=== PATIENT | female | born 1975 | race Two or more races ===

== ENCOUNTER → 2019-08-19 | Outpatient (CLI) | payer SELFPAY | END | disposition home or self-care (01) | LOC: LAB SHORT 14:30 → LAB 14:30 | DX: N75.0 Cyst of Bartholin's gland (principal) | CPT/HCPCS: 87070; 87075; 87205 ==

== ENCOUNTER → 2021-05-28 | Outpatient (CLI) | payer SELFPAY | END | disposition home or self-care (01) | LOC: LAB SHORT 13:22 | DX: N92.0 Excessive and frequent menstruation with regular cycle (principal) | CPT/HCPCS: 88305 ==

== ENCOUNTER → 2021-11-22 | Outpatient (CLI) | payer OTHER ==
[2021-11-22 17:34] LABS: Source, Urine Clean Catch
[2021-11-22 19:09] LABS: Bilirubin, Urine Neg (Neg); Blood, Urine 1+ (Neg); Color, Urine Yellow (P-Yellow); Glucose Qualitative, Urine Neg (Neg); Ketones, Urine Neg (Neg); Leukocyte Esterase, Urine Neg (Neg); Nitrite, Urine Neg (Neg); Protein, Urine 1+ (Neg); Urobilinogen, Urine NORM (Normal)
[2021-11-22 19:31] LABS: Appearance, Urine Hazy (Clear)
[2021-11-22 19:32] LABS: Bacteria Many /hpf; Squamous Epithelial Cells Few /hpf (Few); White Blood Cells, Urine 0-2 /hpf (0-5)
== END | disposition home or self-care (01) ==
LOC: LAB SHORT 17:30
PROVIDERS: Obstetrics & Gynecology
DX: Z01.812 Encounter for preprocedural laboratory examination (principal)
CPT/HCPCS: 81001; 87086

== ENCOUNTER 2021-12-13 09:07 | Inpatient (IN) | payer OTHER ==
[2021-11-27 15:58] LABS: BASOPHILS ABSOLUTE AUTO 0.03 K/mm3 (0.00-0.23); BASOPHILS PERCENT AUTO 1 % (0-2); EOSINOPHILS ABSOLUTE AUTO 0.06 K/mm3 (0.00-0.68); EOSINOPHILS PERCENT AUTO 1 % (0-6); Hemoglobin 12.2 g/dL (11.5-16.0); IMMATURE GRAN ABSOLUTE AUTO 0.02 K/mm3 (0.00-0.10); IMMATURE GRAN PERCENT AUTO 0 % (0-1); LYMPHOCYTES ABSOLUTE AUTO 0.81 K/mm3 (0.84-5.20); LYMPHOCYTES PERCENT AUTO 14 % (21-46); MONOCYTES ABSOLUTE AUTO 0.46 K/mm3 (0.16-1.47); MONOCYTES PERCENT AUTO 8 % (4-13); Mean Platelet Volume 9.6 fL (9.1-12.4); NEUTROPHILS ABSOLUTE AUTO 4.38 K/mm3 (1.96-9.15); NEUTROPHILS PERCENT AUTO 76 % (41-73); Platelet Count 268 K/mm3 (150-400); White Blood Cell Count 5.76 K/mm3 (4.00-11.30)
[2021-11-27 16:12] LABS: Percent Saturation 26.8 % (15.0-50.0)
[2021-11-27 17:04] LABS: Hematocrit 38.5 % (33.0-51.0); Mean Corpuscular HGB 24.4 pg (26.0-34.0); Mean Corpuscular HGB Conc 31.7 g/dL (31.5-36.5); Mean Corpuscular Volume 77 fL (80-100)
[~2021-12-13] VITALS: Ht 165.1 cm; Wt 83.6 kg
[2021-12-13] MEDS ORDERED: MEDR10 PO (09:56)
[2021-12-13 10:04] LABS: BASOPHILS ABSOLUTE AUTO 0.06 K/mm3 (0.00-0.23); BASOPHILS PERCENT AUTO 1 % (0-2); EOSINOPHILS ABSOLUTE AUTO 0.03 K/mm3 (0.00-0.68); EOSINOPHILS PERCENT AUTO 0 % (0-6); Hemoglobin 12.9 g/dL (11.5-16.0); IMMATURE GRAN ABSOLUTE AUTO 0.02 K/mm3 (0.00-0.10); IMMATURE GRAN PERCENT AUTO 0 % (0-1); LYMPHOCYTES ABSOLUTE AUTO 1.28 K/mm3 (0.84-5.20); LYMPHOCYTES PERCENT AUTO 19 % (21-46); MONOCYTES ABSOLUTE AUTO 0.44 K/mm3 (0.16-1.47); MONOCYTES PERCENT AUTO 6 % (4-13); Mean Platelet Volume 9.2 fL (9.1-12.4); NEUTROPHILS PERCENT AUTO 73 % (41-73); Platelet Count 306 K/mm3 (150-400); White Blood Cell Count 6.83 K/mm3 (4.00-11.30)
[2021-12-13 10:09] LABS: Mean Corpuscular HGB 25.4 pg (26.0-34.0); Mean Corpuscular HGB Conc 32.3 g/dL (31.5-36.5); Mean Corpuscular Volume 79 fL (80-100); Red Blood Cell Count 5.07 M/mm3 (3.80-5.20)
--- NOTE | 2021-12-13 10:24 | NUR ---
Ambulatory in [facility] warming gown applied. Surgical site prepped with 2% Chlorhexidine cloth wipe. History, Chart, Medications and Allergies reviewed before start of procedure.History, Chart, Medications and Allergies reviewed before start of procedure.Lungs clear T/O to Auscultation. Patient confirms NPO status and agrees with scheduled surgery. Pre-Op teaching done. Pt verbalizes understanding. Patient States Post-Procedure ride home has been arranged. Patient reports completing Chlorhexadine shower X2 prior to admission to hospital.
--- NOTE | 2021-12-13 19:49 | NUR ---
SHIFT SUMMARY POD0 ROBOTIC LAP HYSTER, A/O X4, VSS, TOLERATING PO, PAIN WELL MANAGED, VOIDING, AMBULATING WITH ASSISTANCE. SOME NAUSEA SHORTLY AFTER ARRIVAL TO THE FLOOR AND AFTER AMBULATING TO THE BATHROOM BUT NO EMESIS. C/O R SHOULDER PAIN BUT WAS MANAGED WITH 2MG PO DILAUDED AND TORADOL (SEE EMAR). PT EDUCATED ON PLAN OF CARE FOR TONIGHT AND DC TOMORROW. REPORT GIVEN TO VIPUL RYAN.
--- NOTE | 2021-12-14 04:03 | NUR ---
SHIFT SUMMARY NO ACUTE CHANGES. PT SLEPT WELL T/O NIGHT. TORADOL/TYLENOL/DILAUDID FOR PAIN MANAGEMENT. LAP SITES TO ABD REMAIN CDI. VOIDING SPONTANEOUSLY. INDEP IN ROOM. ENCOURAGING AMBULATION TO RELIEVE GAS PAINS. NINA REG DIET. SCANT VAGINAL BLEEDING ON ALANA PAD. USES CALL LIGHT APPROPRIATELY. PT PLANNING TO DC HOME THIS MORNING.
[2021-12-14] MEDS ORDERED: HYDMOR2 PO (07:10)
--- NOTE | 2021-12-14 11:38 | NUR ---
Pt, is sitting up on side of bed and welcomes my visit. Pt. is awaiting friend to arrive for discharge. Pt. is pleasant and denies any spiritual needs at this time. Establish rapport. Pt. verbalizes gratitude for the spiritual care visit.
--- NOTE | 2021-12-14 13:16 | NUR ---
DISCHARGE SUMMARY POD1 ROBOTIC LAVH, A/O X4, VSS, TOLERATING PO, VOIDING, AMBULATING INDEPENDENTLY, PAIN WELL MANAGED. DISCUSSED DISCHARGE INFORMATION WITH THE PATIENT AND HER FAMILY MEMBER (MAILE) INCLUDING HOME CARE, MEDICATIONS, S/SX TO LOOK OUT FOR POSSIBLE INFECTION, CONTACT INFORMATION FOR QUESTIONS AFTER DISCHARGE, AND FOLLOW UP INFORMATION. PT ASKED ABOUT INCISION CARE WHICH WAS COVERED. NO FURTHER QUESTIONS, IV ACCESS REMOVED. PT LEFT VIA AMBULATION TO GO HOME. WC ESCORT OFFERED BUT PT STATED SHE DIDN'T THINK SHE WOULD NEED IT. PT LEFT WITH ALL PERSONAL POSSESSIONS.
== END 2021-12-14 12:54 | disposition home or self-care (01) | DRG 743 ==
LOC: ORSCMMR 09:07 → SURS 15:33 → ORSCMMR 23:45 → SURS 12-14
PROVIDERS: ADMIT Obstetrics & Gynecology
PROC: 0UT94ZZ Resection of Uterus, Percutaneous Endoscopic Approach (ICD-10-PCS; principal; 2021-12-14)
PROC: 0UT74ZZ Resection of Bilateral Fallopian Tubes, Percutaneous Endoscopic Approach (ICD-10-PCS; 2021-12-14)
PROC: 8E0W4CZ Robotic Assisted Procedure of Trunk Region, Percutaneous Endoscopic Approach (ICD-10-PCS; 2021-12-14)
DX: D25.9 Leiomyoma of uterus, unspecified (principal); D50.9 Iron deficiency anemia, unspecified; N80.8 Other endometriosis; F41.9 Anxiety disorder, unspecified; G43.909 Migraine, unspecified, not intractable, without status migrainosus; Z91.018 Allergy to other foods
CPT/HCPCS: 36415; 82728; 83540; 83550; 84702; 85025; 86850; 86900; 86901; 88307; A9270; J0690; J1100; J1885; J2250; J2270; J2405; J2704; J2710; J3010; J7120